=== PATIENT | male | born 1990 | race Caucasian/White ===

== ENCOUNTER 2018-08-04 10:19 | Emergency (ER) | payer OTHER ==
[~2018-08-04] VITALS: Ht 182.9 cm; Wt 113.4 kg
[2018-08-04 10:53] LABS: ICTOTEST (BILI CONFIRMATORY) Negative (Negative); URINE BILIRUBIN NEGATIVE (Negative); URINE BLOOD NEGATIVE (Negative); URINE CLARITY CLEAR; URINE COLOR YELLOW; URINE GLUCOSE-RANDOM* NEGATIVE (Negative); URINE KETONES NEGATIVE (Negative); URINE LEUKOCYTES-REFLEX NEGATIVE (Negative); URINE NITRITE-REFLEX NEGATIVE (Negative); URINE PROTEIN (DIPSTICK) TRACE (Negative); URINE SPECIFIC GRAVITY >= 1.030 (1.005-1.035); URINE UROBILINOGEN 0.2 E.U./dl (0.2-1.0)
[2018-08-04] MEDS ORDERED: GYNE-LOTRIMIN-745 GM TOP (11:03)
[2018-08-04] MEDS ORDERED: IBUPROFEN 600600 M1 PO (11:03)
[2018-08-04] MEDS ORDERED: ACYCLOVIR 400400 MG PO (11:03)
== END 2018-08-04 11:55 | disposition home or self-care (01) ==
LOC: ER 10:19
PROVIDERS: Nurse Practitioner Family
DX: N48.1 Balanitis (principal); N34.2 Other urethritis; A60.00 Herpesviral infection of urogenital system, unspecified

== ENCOUNTER 2019-01-03 08:19 | Emergency (ER) | payer OTHER ==
[~2019-01-03] VITALS: Ht 180.3 cm; Wt 124.7 kg
[~2019-01-03 08:19] MED LIST: ACYCLOVIR 400400 MG PO; GYNE-LOTRIMIN-745 GM TOP; IBUPROFEN 600600 M1 PO
[2019-01-03] MEDS ORDERED: NORCO 5-325 TA1 EACH PO (09:24)
[2019-01-03 09:41] VITALS: BP 147/84
== END 2019-01-03 09:40 | disposition home or self-care (01) ==
LOC: ER 08:19
DX: H16.133 Photokeratitis, bilateral (principal)